=== PATIENT | female | born 1955 | race Caucasian/White ===

== ENCOUNTER 2017-02-20 11:20 | Emergency (ER) | payer OTHER ==
[~2017-02-20] VITALS: Ht 152.4 cm; Wt 68.0 kg
[2017-02-20] MEDS ORDERED: NEXI40CA PO (11:43)
[2017-02-20] MEDS ORDERED: SIMV80TA PO (11:43)
[2017-02-20] MEDS ORDERED: CELE100C PO (11:43)
[2017-02-20] MEDS ORDERED: ALBU17IN INH (11:43)
[2017-02-20] MEDS ORDERED: HYZA100T6 PO (11:43)
[2017-02-20] MEDS ORDERED: LEVO137T2 PO (11:43)
[2017-02-20] MEDS ORDERED: METF1000 PO (11:43)
[2017-02-20] MEDS ORDERED: VITA100037 PO (11:43)
[2017-02-20] MEDS ORDERED: DULO30CA PO (11:43)
--- NOTE | 2017-02-20 12:17 | REP ---
Clinical: Dyspnea. Cough . Comparison: None . Findings: The mediastinum and cardiac silhouette are stable and within normal limits for portable technique. The lung ang are clear without acute consolidation, effusion, or pneumothorax. Skeletal structures are intact. Impression: Normal portable chest x-ray Signed by Enrique Miles MD 02/20/2017 12:08 P
[2017-02-20 12:26] LABS: ANION GAP 9 MEQ/L (8-16); BLOOD UREA NITROGEN 9 MG/DL (7-18); CALCIUM LEVEL 9.2 MG/DL (8.8-10.2); CARBON DIOXIDE LEVEL 28 MEQ/L (21-32); CHLORIDE LEVEL 101 MEQ/L (98-107); CREATININE FOR GFR 0.97 MG/DL (0.55-1.02); GLOMERULAR FILTRATION RATE > 60.0 (>45); GLUCOSE, FASTING 179 MG/DL (80-110); POTASSIUM SERUM 3.8 MEQ/L (3.5-5.1); SODIUM LEVEL 138 MEQ/L (136-145)
--- NOTE | 2017-02-20 12:55 | REP ---
Left lower extremity deep vein duplex ultrasound: The deep veins demonstrate normal compression, normal Doppler color flow and normal Doppler waveforms with respiration and augmentation at multiple levels from the left popliteal vein to the common femoral vein. Impression: There is no evidence of deep vein thrombus. Signed by Yobani Alfaro MD 02/20/2017 12:47 P
[2017-02-20 12:59] LABS: BASO % 0.4 % (0.0-1.0); EOS # 0.1 K/mm3 (0.0-0.50); EOS % 1.4 % (0.0-3.0); LARGE UNSTAINED CELL # 0.2 K/mm3 (0.0-0.4); LARGE UNSTAINED CELL % 2.9 % (0.0-4.0); LYMPH # 1.9 K/mm3 (1.5-4.5); LYMPH % 26.7 % (24.0-44.0); MEAN CORPUSCULAR HEMOGLOBIN 24.6 pg (27.0-33.0); MEAN CORPUSCULAR HGB CONC 30.7 g/dl (32.0-36.5); MEAN CORPUSCULAR VOLUME 80.2 fl (80.0-96.0); MONO # 0.4 K/mm3 (0.0-0.8); MONO % 6.2 % (0.0-5.0); NEUTROPHILS # 4.4 K/mm3 (1.8-7.7); NEUTROPHILS % 62.4 % (36.0-66.0); PLATELET COUNT, AUTOMATED 298 k/mm3 (150-450); WHITE BLOOD COUNT 7.1 K/mm3 (4.0-10.0)
[2017-02-20] MEDS ORDERED: IBUP600T26 PO (13:56)
[2017-02-20] MEDS ORDERED: CYCL10TA PO (13:56)
[2017-02-20 14:17] VITALS: BP 135/84
--- NOTE | 2017-02-21 16:28 | ECGEPIP ---
Stationary ECG Study [facility] - ED Test Date: 2017-02-20 Pat Name: WADE SEARS Department: Room: - Gender: F Bull Driver: deirdre : 1955 Requested By: Layla Duran Order Number: [id number] Reading MD: Layla Duran Measurements Intervals [place] Rate: 78 P: 9 CA: 141 QRS: 2 QRSD: 86 T: 7 QT: 365 QTc: 416 Interpretive Statements SINUS RHYTHM NSTTW ABNORMALITY NO PRIOR FOR COMPARISON Electronically Signed On 02-21-2017 16:28:14 EDT by Layla Duran
== END 2017-02-20 14:18 | disposition home or self-care (01) ==
LOC: M ED 13:29
DX: M54.16 Radiculopathy, lumbar region (principal)

== ENCOUNTER → 2017-03-11 | Outpatient (CLI) | payer OTHER ==
[~2017-03-11] MED LIST: ALBU17IN INH; CELE100C PO; CYCL10TA PO; DULO30CA PO; HYZA100T6 PO; IBUP600T26 PO; LEVO137T2 PO; METF1000 PO; NEXI40CA PO; SIMV80TA PO; VITA100037 PO
--- NOTE | 2017-03-11 15:55 | REPMRS ---
Patient History The patient states she had a clinical breast exam in 2015. Patient is postmenopausal. No known family history of cancer. Took hormonal contraceptives for 15 years. Took unspecified hormones for 1 year. Digital Mammo Screening Bilat: March 11, 2017 - Exam #: [id number] Bilateral CC and MLO view(s) were taken. Technologist: Teresa Bee, Technologist Prior study comparison: June 07, 2014, bilateral bilat screen digital mammo, performed at [facility] ([facility]). November 10, 2012, bilateral bilat screen digital mammo, performed at [facility] ([facility]). January 18, 2011, bilateral screening mammogram, performed at [facility] ([facility] FINDINGS: There are scattered fibroglandular densities. There is a moderate amount of residual fibroglandular tissue which is fairly symmetric. There is no interval development of dominant mass, architectural distortion, or clustered microcalcification typical of malignancy. There has been no change in the appearance of the mammogram from the prior studies. ASSESSMENT: BI-RADS/ACR category 1 mammogram. Negative. Recommendation Routine screening mammogram of both breasts in 1 year (for women over age 40). This mammogram was interpreted with the aid of an FDA-approved computer-aided dectection system. Electronically Signed By: Fausto Rubio MD 03/11/17 [id number]
== END ==
LOC: M RAD 13:18
PROVIDERS: ATTEND Physician Assistant
DX: Z12.31 Encounter for screening mammogram for malignant neoplasm of breast (principal)

== ENCOUNTER 2018-11-26 08:08 | Day surgery (SDC) | payer OTHER ==
[~2018-11-26] VITALS: Ht 152.4 cm; Wt 67.1 kg
[~2018-11-26 08:08] MED LIST changes: +COLA100C5 PO; +CRES10TA32 PO; +GLYB5TA PO; +IBUP-1022 PO; -IBUP600T26 PO; +JANU100T14 PO; +JARD1TAB PO; +LEVO175T2 PO; +LIDOCAINE 2% INJ 100 MG/5 ML SDV (FOR ANES.) As Ordered ONE; +LOSA100T50 PO; -METF1000 PO; +METF10004 PO; +OLOP0.1D OU; +PANT40TA3 PO; +PROPOFOL 200 MG/20 ML VIAL As Ordered ONE; -SIMV80TA PO; +SIMV80TA13 PO; +VENTAER INH; -VITA100037 PO; +VITA100067 PO; +VITA50005 PO; +fentaNYL 100 MCG/2 ML INJECTION (J3010) As Ordered ONE
[2018-11-26] MEDS ORDERED: NS 1,000 ML IV ONE (08:30)
[2018-11-26] MEDS ORDERED: PROPOFOL 200 MG/20 ML VIAL As Ordered ONE (09:36)
--- NOTE | 2018-11-26 09:58 | ROOR ---
Patient Name: Edilia Martinez Procedure Date: 11/26/2018 8:56 AM Date of : 1955 Age: 63 Room: [facility] Gender: Female Note Status: Finalized Procedure: Upper GI endoscopy Indications: Dyspepsia, Heartburn Providers: Pedro Luis Solo MD Referring MD: JESSICA LOPEZ MD Requesting Provider: Medicines: Monitored Anesthesia Care Complications: No immediate complications. Procedure: Pre-Anesthesia Assessment: - Prior to the procedure, a History and Physical was performed, and patient medications and allergies were reviewed. The patient is competent. The risks and benefits of the procedure and the sedation options and risks were discussed with the patient. All questions were answered and informed consent was obtained. Patient identification and proposed procedure were verified by the physician, the nurse and the anesthesiologist in the procedure room. Mental Status Examination: alert and oriented. Airway Examination: normal oropharyngeal airway and neck mobility. Respiratory Examination: clear to auscultation. CV Examination: normal. Prophylactic Antibiotics: The patient does not require prophylactic antibiotics. Prior Anticoagulants: The patient has taken no previous anticoagulant or antiplatelet agents. ASA Grade Assessment: II - A patient with mild systemic disease. After reviewing the risks and benefits, the patient was deemed in satisfactory condition to undergo the procedure. The anesthesia plan was to use monitored anesthesia care (MAC). Immediately prior to administration of medications, the patient was re-assessed for adequacy to receive sedatives. The heart rate, respiratory rate, oxygen saturations, blood pressure, adequacy of pulmonary ventilation, and response to care were monitored throughout the procedure. The physical status of the patient was re-assessed after the procedure. The Endoscope was introduced through the mouth, and advanced to the second part of duodenum. The upper GI endoscopy was accomplished without difficulty. The patient tolerated the procedure well. Findings: The Z-line was regular and was found in the distal esophagus. No gross lesions were noted in the entire esophagus. Diffuse moderate inflammation characterized by congestion (edema), erythema and granularity was found in the gastric body and in the gastric antrum. Two biopsies were obtained with cold forceps for histology in the gastric antrum, as well as three biopsies in the gastric body. Verification of patient identification for the specimen was done by the physician and nurse using the patient's name, date and medical record number. The duodenal bulb and second portion of the duodenum were normal. Biopsies for histology were taken with a cold forceps for evaluation of celiac disease. Impression: - Z-line regular, in the distal esophagus. - No gross lesions in esophagus. - Gastritis. - Normal duodenal bulb and second portion of the duodenum. Biopsied. - Biopsies performed in the gastric antrum and in the gastric body. Recommendation: - Patient has a contact number available for emergencies. The signs and symptoms of potential delayed complications were discussed with the patient. Return to normal activities tomorrow. Written discharge instructions were provided to the patient. - Resume previous diet. - Continue present medications. - Await pathology results. - Based on the biopsy results you will receive a phone call from GI clinic in 2-3 weeks to review the pathology results AND/OR your results will be faxed to your Primary care physician. - Return to primary care physician. Pedro Luis Solo MD Pedro Luis Solo MD 11/26/2018 9:58:23 AM This report has been signed electronically. Number of Addenda: 0 Note Initiated On: 11/26/2018 8:56 AM Estimated Blood Loss: Estimated blood loss was minimal.
--- NOTE | 2018-11-26 10:03 | ROOR ---
Patient Name: Edilia Martinez Procedure Date: 11/26/2018 8:57 AM Date of : 1955 Age: 63 Room: [facility] Gender: Female Note Status: Finalized Procedure: Colonoscopy Indications: Screening for colorectal malignant neoplasm Providers: Pedro Luis Solo MD Referring MD: JESSICA LOPEZ MD Requesting Provider: Medicines: Monitored Anesthesia Care Complications: No immediate complications. Procedure: Pre-Anesthesia Assessment: - Prior to the procedure, a History and Physical was performed, and patient medications and allergies were reviewed. The patient is competent. The risks and benefits of the procedure and the sedation options and risks were discussed with the patient. All questions were answered and informed consent was obtained. Patient identification and proposed procedure were verified by the physician, the nurse and the anesthesiologist in the procedure room. Mental Status Examination: alert and oriented. Airway Examination: normal oropharyngeal airway and neck mobility. Respiratory Examination: clear to auscultation. CV Examination: normal. Prophylactic Antibiotics: The patient does not require prophylactic antibiotics. Prior Anticoagulants: The patient has taken no previous anticoagulant or antiplatelet agents. ASA Grade Assessment: II - A patient with mild systemic disease. After reviewing the risks and benefits, the patient was deemed in satisfactory condition to undergo the procedure. The anesthesia plan was to use monitored anesthesia care (MAC). Immediately prior to administration of medications, the patient was re-assessed for adequacy to receive sedatives. The heart rate, respiratory rate, oxygen saturations, blood pressure, adequacy of pulmonary ventilation, and response to care were monitored throughout the procedure. The physical status of the patient was re-assessed after the procedure. The Colonoscope was introduced through the anus and advanced to the terminal ileum, with identification of the appendiceal orifice and IC valve. The colonoscopy was performed without difficulty. The patient tolerated the procedure well. The quality of the bowel preparation was good. The terminal ileum, ileocecal valve, appendiceal orifice, and rectum were photographed. Scope insertion time was 4 minutes. Scope withdrawal time was 8 minutes. The total duration of the procedure was 12 minutes. Findings: The perianal and digital rectal examinations were normal. The terminal ileum appeared normal. A 10 mm polyp was found in the sigmoid colon. The polyp was sessile. The polyp was removed with a cold snare. Resection and retrieval were complete. Verification of patient identification for the specimen was done by the physician, nurse and simulation technician using the patient's name, date and medical record number. Estimated blood loss was minimal. A 8 mm polyp was found in the rectum. The polyp was sessile. Biopsies were taken with a cold forceps for histology. Multiple small and large-mouthed diverticula were found from sigmoid to ascending colon. There was no evidence of diverticular bleeding. Non-bleeding external and internal hemorrhoids were found during retroflexion. The hemorrhoids were large. Impression: - The examined portion of the ileum was normal. - One 10 mm polyp in the sigmoid colon, removed with a cold snare. Resected and retrieved. - One 8 mm polyp in the rectum. Biopsied. - Severe diverticulosis from sigmoid to ascending colon. There was no evidence of diverticular bleeding. - Non-bleeding external and internal hemorrhoids. Recommendation: - Patient has a contact number available for emergencies. The signs and symptoms of potential delayed complications were discussed with the patient. Return to normal activities tomorrow. Written discharge instructions were provided to the patient. - High fiber diet. - Continue present medications. - Await pathology results. - Repeat colonoscopy in 3 - 5 years for surveillance based on pathology results. If rectal biopsy shows changes, might need sooner flexible sigmoidoscopy in 6 months. - Based on the biopsy results you will receive a phone call from GI clinic in 2-3 weeks to review the pathology results AND/OR your results will be faxed to your Primary care physician. - Return to primary care physician. Pedro Luis Solo MD Pedro Luis Solo MD 11/26/2018 10:02:40 AM This report has been signed electronically. Number of Addenda: 0 Note Initiated On: 11/26/2018 8:57 AM Estimated Blood Loss: Estimated blood loss was minimal.
[2018-11-26 10:15] VITALS: BP 122/69
== END 2018-11-26 10:55 | disposition home or self-care (01) ==
LOC: M OPP 08:08
PROVIDERS: ATTEND Internal Medicine Gastroenterology
DX: K64.8 Other hemorrhoids (principal); D12.5 Benign neoplasm of sigmoid colon; K62.1 Rectal polyp; K57.30 Diverticulosis of large intestine without perforation or abscess without bleeding; K62.5 Hemorrhage of anus and rectum; K29.70 Gastritis, unspecified, without bleeding; R10.13 Epigastric pain
CPT/HCPCS: 43239; 45380; 45385; 88305; J3010

== ENCOUNTER → 2019-02-04 | Outpatient (CLI) | payer OTHER ==
[~2019-02-04] MED LIST changes: -LIDOCAINE 2% INJ 100 MG/5 ML SDV (FOR ANES.) As Ordered ONE; -PROPOFOL 200 MG/20 ML VIAL As Ordered ONE; -fentaNYL 100 MCG/2 ML INJECTION (J3010) As Ordered ONE
--- NOTE | 2019-02-04 17:44 | REPMRS ---
Patient History The patient states she had a clinical breast exam in 07/11.No known family history of cancer. Took hormonal contraceptives for 15 years. Took unspecified hormones for 1 year. 2D ONLY Digital Mammo Screening Bilat: February 04, 2019 - Exam #: [id number] Bilateral CC and MLO view(s) were taken. Technologist: Teresa Bee, Technologist Prior study comparison: March 11, 2017, bilateral digital mammo screening bilat performed at [facility]. June 07, 2014, bilateral bilat screen digital mammo, performed at [facility] ([facility]). FINDINGS: There are scattered fibroglandular densities. There has been no change in the appearance of the mammogram from the prior studies. There is a moderate amount of residual fibroglandular tissue which is fairly symmetric. There is no interval development of dominant mass, architectural distortion, or clustered microcalcification suggestive of malignancy. Scattered lymph nodes are seen in the axillae. There are scattered, small, benign calcifications of doubtful clinical significance. 3-D tomosynthesis shows no additional findings. No significant changes when compared with prior studies. Assessment: BI-RADS/ACR category 2 mammogram. Benign Findings. Recommendation Routine screening mammogram in 1 year (for women over age 40). This mammogram was interpreted with the aid of an FDA-approved computer-aided dectection system. A. Negative x-ray reports should not delay biopsy if a dominant or clinically suspicious mass is present. B. Four to eight percent of cancers are not identified by mammography. C. Adenosis and dense breast may obscure an underlying neoplasm. Electronically Signed By: Seymour Perdomo MD 02/04/19 [id number]
== END ==
LOC: M RAD 16:54
PROVIDERS: ATTEND Internal Medicine
DX: Z12.31 Encounter for screening mammogram for malignant neoplasm of breast (principal)

== ENCOUNTER 2019-02-13 17:52 | Emergency (ER) | payer OTHER ==
[~2019-02-13] VITALS: Ht 152.4 cm; Wt 68.6 kg
[~2019-02-13 17:52] MED LIST changes: -DULO30CA PO; +DULO30CA9 PO
[2019-02-13] MEDS ORDERED: HYDR25TAB (18:01)
[2019-02-13] MEDS ORDERED: ONDANSETRON 4MG/2ML VIAL (J2405) IV ONE (18:15)
[2019-02-13] MEDS ORDERED: KETOROLAC 30 MG/ML VIAL (J1885) IV ONE (18:15)
[2019-02-13] MEDS: GASTROGRAFIN SOLUTION 30ML PO SCH ×2 (19:01→19:30)
[2019-02-13 19:56] LABS: BASO # 0.1 10^3/uL (0.0-0.2); BASO % 0.8 % (0.0-1.0); EOS # 0.1 10^3/uL (0.0-0.50); EOS % 1.3 % (0.0-3.0); HEMATOCRIT 44.1 % (36.0-47.0); HEMOGLOBIN 13.3 g/dl (12.0-15.5); LYMPH # 2.5 10^3/uL (1.5-4.5); LYMPH % 39.2 % (24.0-44.0); MEAN CORPUSCULAR HEMOGLOBIN 24.3 pg (27.0-33.0); MEAN CORPUSCULAR HGB CONC 30.2 g/dl (32.0-36.5); MEAN CORPUSCULAR VOLUME 80.5 fl (80.0-96.0); MONO # 0.7 10^3/uL (0.0-0.8); MONO % 11.2 % (0.0-5.0); NEUTROPHILS % 47.2 % (36.0-66.0); PLATELET COUNT, AUTOMATED 366 10^3/uL (150-450); RED BLOOD COUNT 5.48 10^6/uL (4.00-5.40); WHITE BLOOD COUNT 6.3 10^3/uL (4.0-10.0)
[2019-02-13 20:00] LABS: ALBUMIN 3.5 GM/DL (3.2-5.2); ALT/SGPT 19 U/L (12-78); AMYLASE 56 U/L (25-115); BILIRUBIN,DIRECT < 0.1 MG/DL (0.0-0.2); BILIRUBIN,TOTAL 0.2 MG/DL (0.2-1.0); BLOOD UREA NITROGEN 11 MG/DL (7-18); CALCIUM LEVEL 9.1 MG/DL (8.8-10.2); CARBON DIOXIDE LEVEL 29 MEQ/L (21-32); CHLORIDE LEVEL 104 MEQ/L (98-107); CREATININE FOR GFR 0.84 MG/DL (0.55-1.30); GLOMERULAR FILTRATION RATE > 60.0 (>45); GLUCOSE, FASTING 141 MG/DL (70-100); LIPASE 276 U/L (73-393); POTASSIUM SERUM 3.5 MEQ/L (3.5-5.1); SODIUM LEVEL 140 MEQ/L (136-145); TOTAL PROTEIN 6.9 GM/DL (6.4-8.2)
[2019-02-13] MEDS ORDERED: ISOVUE-370 76% 125ML VIAL (Q9967 PER ML) As Ordered ONE (20:14)
--- NOTE | 2019-02-13 22:23 | REPVR ---
EXAM: CT Abdomen and Pelvis With Contrast EXAM DATE/TIME: 02/13/2019 8:58 PM CLINICAL HISTORY: 63 years old, female; Pain; Abdominal pain; Generalized; Additional info: R/O appendicitis, bowel obstruction TECHNIQUE: Imaging protocol: Axial computed tomography images of the abdomen and pelvis with intravenous contrast. Coronal and sagittal reformatted images were created and reviewed. Radiation optimization: All CT scans at this facility use at least one of these dose optimization techniques: automated exposure control; mA and/or kV adjustment per patient size (includes targeted exams where dose is matched to clinical indication); or iterative reconstruction. Contrast material: ISOVUE 370 Contrast volume: 100 ml Contrast route: IV COMPARISON: No relevant prior studies available. FINDINGS: Lower thorax: Clear lung bases. Normal size heart. ABDOMEN: Liver: Normal appearing liver. Gallbladder and bile ducts: The patient is status post cholecystectomy. There is some ectasia of the common bile duct consistent with a post cholecystectomy patient. Pancreas: Normal appearing pancreas. Spleen: Normal appearing spleen. Adrenals: Normal adrenal glands. Kidneys and ureters: There is a 3 mm calcified stone upper pole right kidney. There is no evidence of obstruction of the right ureter. There is no evidence of obstruction of the left ureter. Stomach and bowel: There is thickening of bowel wall with thickening of a 20 CM length of sigmoid colon. There are numerous large diverticula with surrounding inflammation and all consistent with diverticulitis. There is a small amount of fluid along the left pelvic sidewall all consistent with changes of diverticulitis. There is opacification of the small bowel with no evidence of obstruction. Appendix: The cecum is in the right pelvis. The appendix appears normal in size. PELVIS: Bladder: Normal urinary bladder. Reproductive: Patient is status post hysterectomy. ABDOMEN and PELVIS: Intraperitoneal space: No evidence of pneumoperitoneum. There is no evidence of free fluid in the abdomen. Bones/joints: No acute fracture. No dislocation. Soft tissues: Unremarkable. Vasculature: There is opacification of the aorta which appears normal in size. There is opacification of the SMA and SMV. Lymph nodes: There is no evidence of significant lymphadenopathy. IMPRESSION: Thickening of the bowel wall of a 20 CM length of sigmoid colon with numerous large diverticula and inflammation. Small amount fluid along left pelvic sidewall and all consistent with changes of diverticulitis. Followup studies would be helpful to see that the bowel wall thickening resolves. Electronically signed by: Tobin Gaspar On 02/13/2019 22:22:59 PM
[2019-02-13 23:42] VITALS: BP 134/81
[2019-02-13] MEDS ORDERED: BACT800T5 PO (23:53)
[2019-02-13] MEDS ORDERED: FLAG500T PO (23:53)
[2019-02-14] MEDS ORDERED: BACTRIM 160MG/800MG DS TAB PO ONE
[2019-02-14] MEDS ORDERED: metroNIDAZOLE (FLAGYL) 500 MG TAB PO ONE
== END 2019-02-14 00:05 | disposition home or self-care (01) ==
LOC: M ED 17:52
DX: K57.32 Diverticulitis of large intestine without perforation or abscess without bleeding (principal); E11.9 Type 2 diabetes mellitus without complications; I10 Essential (primary) hypertension; J45.909 Unspecified asthma, uncomplicated; E78.5 Hyperlipidemia, unspecified; E03.9 Hypothyroidism, unspecified; Z79.899 Other long term (current) drug therapy; Z79.890 Hormone replacement therapy
CPT/HCPCS: 74177; 80048; 80076; 81001; 82150; 83690; 85025; 96374; 96375; 99284; J1885; J2405; Q9963; Q9967

== ENCOUNTER → 2019-09-25 | Outpatient (REF) | payer OTHER ==
[~2019-09-25] MED LIST changes: +BACT800T5 PO; +CRES10TA PO; -CRES10TA32 PO; +FLAG500T PO; +HYDR25TAB
== END ==
LOC: M WUC 17:02
PROVIDERS: ATTEND Physician Assistant
DX: R30.0 Dysuria (principal)

== ENCOUNTER → 2019-12-07 | Outpatient (REF) | payer OTHER | LOC: M WUC 09:56 | PROVIDERS: ATTEND Physician Assistant | DX: R30.0 Dysuria (principal) ==

== ENCOUNTER → 2020-04-21 | Outpatient (CLI) | payer OTHER ==
[~2020-04-21] MED LIST changes: +CYCL-707 PO; -CYCL10TA PO
--- NOTE | 2020-04-21 08:54 | REPMRS ---
Patient History The patient states she had a clinical breast exam in March 2020.No known family history of cancer. Took hormonal contraceptives for 15 years. Took unspecified hormones for 1 year. Digital Woman Screen Mammo: April 21, 2020 - Exam #: [id number] Bilateral CC and MLO view(s) were taken. Technologist: Teresa Bee, Technologist Prior study comparison: February 04, 2019, bilateral digital mammo screening bilat, performed at [facility]. March 11, 2017, bilateral digital mammo screening bilat, performed at [facility]. June 07, 2014, bilateral bilat screen digital mammo, performed at [facility] ([facility]). FINDINGS: There are scattered fibroglandular densities. The Volpara volumetric breast density category is:B. There has been no change in the appearance of the mammogram from the prior studies. There is a mild amount of scattered fibroglandular density which is fairly symmetric. There is no interval development of dominant mass, architectural distortion, or grouped microcalcification suggestive of malignancy. 3-D tomosynthesis shows no additional findings. Assessment: BI-RADS/ACR category 1 mammogram. Negative Mammogram. Recommendation Routine screening mammogram of both breasts in 1 year (for women over age 40). This patient's Lifetime Breast Cancer Risk is estimated at 6.4 %. This mammogram was interpreted with the aid of an FDA-approved computer-aided dectection system. Electronically Signed By: Fausto Rubio MD 04/21/20 0854
--- NOTE | 2020-04-22 12:37 | REP ---
RENAL ULTRASOUND: Real-time sonographic evaluation of kidneys performed. The kidneys are normal in size and echotexture, right kidney measuring 10.0 x 3.9 x 3.9 cm and left kidney 10.3 x 3.8 x 4.1 cm. Resistive index right kidney 0.63 and left kidney 0.66 with duplex Doppler evaluation. There is no hydronephrosis. Two calcifications are seen in the right upper pole 6-7 mm in diameter. There is focal cortical scarring of the mid right renal cortex. There is an extrarenal pelvis of the right kidney. Urinary bladder is not well distended and not well evaluated. Ureteral jets could not be seen in the urinary bladder with Doppler color evaluation. IMPRESSION: No hydronephrosis bilaterally. Focal cortical scarring mid right kidney. Two calcifications are seen in the upper pole of the right kidney 6 mm in diameter.
== END ==
LOC: M WHC 08:15
PROVIDERS: ATTEND Internal Medicine
DX: Z12.31 Encounter for screening mammogram for malignant neoplasm of breast (principal); N39.0 Urinary tract infection, site not specified; N20.0 Calculus of kidney

== ENCOUNTER → 2020-09-05 | Outpatient (CLI) | payer OTHER ==
[~2020-09-05] MED LIST changes: +PANT40TA29 PO; -PANT40TA3 PO
--- NOTE | 2020-09-08 08:37 | REP ---
COMPLETE ABDOMINAL ULTRASOUND: 09/05/20. CLINICAL: Generalized abdominal pain. TECHNIQUE: Real time bauer scale ultrasound examination using curved array transducer. FINDINGS: The liver demonstrates mildly coarsened echotexture with a 6mm hyperechoic solid lesion in the right lobe likely representing small hemangioma. Spleen and pancreas are normal in appearance, size and echotexture. The gallbladder is not visualized. No biliary ductal dilatation is appreciated and the common bile duct measures 7mm diameter. The left kidney is normal in appearance without hydronephrosis and measures 10.6 x 3.7 x 5.1cm. The right kidney is normal in reniform shape with suggestions for partial duplication and no hydronephrosis measuring 9.3 x 4.7 x 4.1cm. Visualized abdominal aorta appears relatively normal and measures 2.0cm maximal diameter. No ascites in the visualized abdomen. IMPRESSION: 1. Liver demonstrates coarsened echotexture suggesting hepatocellular disease and small 6mm lesion which may represent hemangioma. 2. 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 [facility]
--- NOTE | 2020-09-08 08:38 | REP ---
PELVIC ULTRASOUND: 09/05/20. CLINICAL: Abdominal and pelvic pain. TECHNIQUE: Transabdominal pelvic ultrasound followed by transvaginal examination for better evaluation of the adnexa. FINDINGS: The bladder is collapsed. Evidence for prior hysterectomy. Large amount of bowel obscures the pelvic structures and the bilateral ovaries are not visualized. No obvious free fluid or focal mass lesion appreciated. IMPRESSION: Limited pelvic ultrasound. Evidence for prior hysterectomy. Ovaries not visualized. [facility]
== END ==
LOC: M RAD 09:10
PROVIDERS: ATTEND Internal Medicine
DX: R93.421 Abnormal radiologic findings on diagnostic imaging of right kidney (principal); R10.9 Unspecified abdominal pain; Z90.79 Acquired absence of other genital organ(s)

== ENCOUNTER → 2020-10-14 | Outpatient (REF) | payer OTHER | LOC: M LAB REF 14:10 | PROVIDERS: ATTEND Internal Medicine Gastroenterology | DX: R19.7 Diarrhea, unspecified (principal) ==

== ENCOUNTER 2020-11-03 08:10 | Day surgery (SDC) | payer OTHER ==
[~2020-11-03] VITALS: Ht 152.4 cm; Wt 66.7 kg
[~2020-11-03 08:10] MED LIST changes: +BYDU2INJ7; +ESTR0.059; +IBUP-1720; +LEVO2TA; +LOPE1CAP5; +LOSA100T5; +NS 1,000 ML IV ONE
[2020-11-03] MEDS ORDERED: LIDOCAINE 2% 100MG/5ML SDV (FOR ANES.) As Ordered ONE (08:22)
[2020-11-03] MEDS ORDERED: propofoL 200 MG/20 ML VIAL As Ordered ONE ×2 (08:22→09:05)
--- NOTE | 2020-11-03 09:24 | ROOR ---
Patient Name: Edilia Martinez Procedure Date: 11/03/2020 8:51 AM Date of : 1955 Age: 65 Room: [facility] Gender: Female Note Status: Finalized Procedure: Total Colonoscopy to Cecum + Bx. To r/o Microscopic Colitis Indications: Clinically significant diarrhea of unexplained origin, Change in bowel habits Providers: Jaya Luz MD Referring MD: Siobhan VASQUEZ MD Requesting Provider: Medicines: Monitored Anesthesia Care Complications: No immediate complications. Procedure: Pre-Anesthesia Assessment: - The heart rate, respiratory rate, oxygen saturations, blood pressure, adequacy of pulmonary ventilation, and response to care were monitored throughout the procedure. The Colonoscope was introduced through the anus and advanced to the cecum, identified by appendiceal orifice and ileocecal valve. The colonoscopy was performed without difficulty. The patient tolerated the procedure well. The quality of the bowel preparation was excellent. Findings: The perianal and digital rectal examinations were normal. Non-bleeding internal hemorrhoids were found during retroflexion. The hemorrhoids were small and Grade I (internal hemorrhoids that do not prolapse). Multiple small and large-mouthed diverticula were found in the recto-sigmoid colon, sigmoid colon and descending colon. Biopsies for histology were taken with a cold forceps from the ascending colon, transverse colon, descending colon and rectosigmoid colon for evaluation of microscopic colitis. The exam was otherwise without abnormality. Impression: - Non-bleeding internal hemorrhoids. - Diverticulosis in the recto-sigmoid colon, in the sigmoid colon and in the descending colon. - The examination was otherwise normal. - Biopsies were taken with a cold forceps from the ascending colon, transverse colon, descending colon and rectosigmoid colon for evaluation of microscopic colitis. - The exam was otherwise normal to the cecum. Recommendation: - Patient has a contact number available for emergencies. The signs and symptoms of potential delayed complications were discussed with the patient. Return to normal activities tomorrow. Written discharge instructions were provided to the patient. - High fiber diet. - Discharge patient to home. - Continue present medications. - Await pathology results. - Telephone GI clinic for pathology results in 1 week. - Repeat colonoscopy in 10 years for surveillance based on pathology results. - Return to referring physician. - The findings and recommendations were discussed with the patient. Procedure Code(s): --- Professional --- 60374, Colonoscopy, flexible; with biopsy, single or multiple Diagnosis Code(s): --- Professional --- K64.0, First degree hemorrhoids R19.7, Diarrhea, unspecified R19.4, Change in bowel habit K57.30, Diverticulosis of large intestine without perforation or abscess without bleeding CPT copyright 2019 [employer]. All rights reserved. The codes documented in this report are preliminary and upon oracle iam consultant review may be revised to meet current compliance requirements. Jaya Luz MD Jaya Luz MD 11/03/2020 9:23:45 AM Electronically signed by Jaya Luz MD Number of Addenda: 0 Note Initiated On: 11/03/2020 8:51 AM Estimated Blood Loss: Estimated blood loss: none.
[2020-11-03 09:44] VITALS: BP 133/87
== END 2020-11-03 09:45 | disposition home or self-care (01) ==
LOC: M OPP 08:10
PROVIDERS: ATTEND Internal Medicine Gastroenterology
DX: R19.7 Diarrhea, unspecified (principal); R19.4 Change in bowel habit; D12.6 Benign neoplasm of colon, unspecified; K64.0 First degree hemorrhoids; K57.30 Diverticulosis of large intestine without perforation or abscess without bleeding; I10 Essential (primary) hypertension; E11.9 Type 2 diabetes mellitus without complications; E03.9 Hypothyroidism, unspecified; R12 Heartburn; M19.90 Unspecified osteoarthritis, unspecified site; F32.9 Major depressive disorder, single episode, unspecified; J45.909 Unspecified asthma, uncomplicated; G47.33 Obstructive sleep apnea (adult) (pediatric); Z87.442 Personal history of urinary calculi; Z79.84 Long term (current) use of oral hypoglycemic drugs; Z79.899 Other long term (current) drug therapy

== ENCOUNTER → 2021-07-27 | Outpatient (CLI) | payer MEDICARE, OTHER ==
[~2021-07-27] MED LIST changes: -GLYB5TA PO; +GLYB5TAB6 PO; +HYDR-3490; -HYDR25TAB; -NS 1,000 ML IV ONE
--- NOTE | 2021-07-27 16:37 | REP ---
INDICATION: RT HAND FX FOLLOW-UP. COMPARISON: No comparison study available. TECHNIQUE: Three views of the right hand are provided. FINDINGS: X-rays through overlying splint material. Three views of the right hand demonstrate a transversely oriented fracture through the 5th metacarpal with some very slight apex dorsal angulation. No displacement. There is mild diffuse osteopenia. No other fracture seen. IMPRESSION: Proximal 5th metacarpal fracture as above. X-rays taken through overlying splint material. <Electronically signed by Fausto Rubio > 07/27/21 [id number]
== END ==
LOC: M SOG 14:27
PROVIDERS: ATTEND Orthopaedic Surgery
DX: S62.306A Unspecified fracture of fifth metacarpal bone, right hand, initial encounter for closed fracture (principal); X58.XXXA Exposure to other specified factors, initial encounter; Y92.9 Unspecified place or not applicable; Y93.9 Activity, unspecified; Y99.9 Unspecified external cause status

== ENCOUNTER → 2021-08-10 | Outpatient (CLI) | payer MEDICARE, OTHER ==
--- NOTE | 2021-08-10 17:32 | REP ---
INDICATION: RT HAND PAIN. COMPARISON: 07/27/[address] TECHNIQUE: Three limited views with cast removed FINDINGS: Previously described fracture involving the base of the 5th metacarpal is again identified. The margins are slightly indistinct suggesting early callus formation. IMPRESSION: Findings suggest rudimentary healing. Follow-up is recommended. Consider CT if clinically relevant. <Electronically signed by Jorge Crowell > 08/10/21 [id number]
== END ==
LOC: M SOG 14:47
PROVIDERS: ATTEND Orthopaedic Surgery
DX: M79.641 Pain in right hand (principal); S62.311D Displaced fracture of base of second metacarpal bone, left hand, subsequent encounter for fracture with routine healing; X58.XXXD Exposure to other specified factors, subsequent encounter; Y92.9 Unspecified place or not applicable; Y99.9 Unspecified external cause status; Y93.9 Activity, unspecified

== ENCOUNTER → 2021-09-10 | Outpatient (CLI) | payer MEDICARE, OTHER ==
--- NOTE | 2021-09-10 19:46 | REP ---
INDICATION: RT HAND FX. COMPARISON: 08/10/2021 TECHNIQUE: AP, lateral, oblique view right hand FINDINGS: Callus formation and periosteal reaction noted at the transverse fracture through the base of the 5th metacarpal bone. Remainder of the examination appears normal. IMPRESSION: Healing transverse fracture at the base of the 5th metacarpal bone. <Electronically signed by Enrique Miles > 09/10/211941
== END ==
LOC: M SOG 11:56
PROVIDERS: ATTEND Orthopaedic Surgery
DX: S62.346D Nondisplaced fracture of base of fifth metacarpal bone, right hand, subsequent encounter for fracture with routine healing (principal); X58.XXXD Exposure to other specified factors, subsequent encounter; Y92.9 Unspecified place or not applicable; Y93.9 Activity, unspecified; Y99.9 Unspecified external cause status

== ENCOUNTER → 2021-10-07 | Outpatient (CLI) | payer MEDICARE, OTHER ==
--- NOTE | 2021-10-08 18:58 | SLEEPCENT ---
DATE: 10/07/2021 ORDERED BY: JASMINE Gerber Nocturnal polysomnography was performed for evaluation of sleep physiology in this patient with a history of excessive somnolence, morning headaches, and a prior history of sleep apnea syndrome. Eight hours and 13 minutes of data were reviewed. There were 226 minutes of sleep identified. Sleep latency was prolonged at 76.5 minutes. REM latency was prolonged at 199.5 minutes. Sleep architecture showed poor progression and periods of wake. There were two REM cycles noted. Overall sleep efficiency was 46.5%. The electrocardiogram showed a sinus rhythm with an average heart rate of 68 beats per minute. EEG showed normal waveforms for wake and sleep. There were 118 respiratory events identified of 10 seconds in duration or greater for an apnea-hypopnea index of 31.3. The events were obstructive, not exclusive to sleep stage, more frequent but not exclusive to the supine posture. Arousals from respiratory events occurred 7.4 times per hour, and oxygen desaturations were seen into the 80s. There was some minor limb activity noted. Snoring was seen. Remaining measures of sleep physiology were normal. IMPRESSION: Obstructive sleep apnea syndrome (G47.33). Apnea-hypopnea index 31.3. RECOMMENDATION: The patient should be encouraged to return to [facility]. In the interim, alcohol and sedative avoidance should be practiced and caution exercised during the operation of motor vehicles.
== END ==
LOC: M SLEEP 20:00
PROVIDERS: ATTEND Physician Assistant
DX: G47.33 Obstructive sleep apnea (adult) (pediatric) (principal)

== ENCOUNTER → 2021-11-20 | Outpatient (CLI) | payer MEDICARE, OTHER ==
[~2021-11-20] MED LIST changes: +K-TA10TA PO; +LOSA100T45 PO; -LOSA100T50 PO
[2021-11-20 19:11] LABS: BLOOD UREA NITROGEN 9 MG/DL (7-18); CREATININE FOR GFR 0.81 MG/DL (0.55-1.30); GLOMERULAR FILTRATION RATE > 60.0 (>45)
== END ==
LOC: M LAB 18:22
PROVIDERS: ATTEND Otolaryngology
DX: H90.42 Sensorineural hearing loss, unilateral, left ear, with unrestricted hearing on the contralateral side (principal)

== ENCOUNTER → 2021-11-26 | Outpatient (CLI) | payer MEDICARE, OTHER ==
[~2021-11-26] MED LIST changes: -K-TA10TA PO; -LOSA100T45 PO; +LOSA100T50 PO; +PROHANCE 279.3MG/ML 15ML VIAL ONE
--- NOTE | 2021-11-26 09:49 | REPVR ---
PROCEDURE INFORMATION: Exam: MR Head Without and With Contrast; Internal Auditory Canals Exam date and time: 11/26/2021 9:30 AM Age: 66 years old Clinical indication: Other: Left ear hearing loss, fullness in left ear x 6 mo. ; Additional info: Snsrnrl hear loss, uni, left ear, w unrestr hear c TECHNIQUE: Imaging protocol: MR of the head without and with intravenous contrast. Exam focused on the internal auditory canals. Contrast material: PROHANCE; Contrast volume: 12 ml; Contrast route: INTRAVENOUS (IV); COMPARISON: No relevant prior studies available. FINDINGS: Brain: There is no extra-axial collection or intra-axial mass. Mild diffuse volume loss is within the range of normal for patient age. There are scattered foci of T2/FLAIR white matter hyperintensity, nonspecific but typically small-vessel ischemia in this age group. There is no diffusion restriction. Ventricles: No ventriculomegaly. Mastoid air cells: There is fluid opacification of right mastoid air cells and right middle ear cavity. Internal auditory canals: The IAC's appear symmetric, without abnormal enhancement or mass. Bones/joints: Unremarkable. IMPRESSION: 1. Fluid opacification of right mastoid air cells and right middle ear cavity, presumably effusion. 2. Otherwise, no structural abnormality identified. Electronically signed by: Jeane Lopes On 11/26/2021 09:49:10 AM
== END ==
LOC: M PLAIMG 08:34
PROVIDERS: ATTEND Otolaryngology
DX: H90.42 Sensorineural hearing loss, unilateral, left ear, with unrestricted hearing on the contralateral side (principal); H74.8X1 Other specified disorders of right middle ear and mastoid
CPT/HCPCS: 70553; A9576

== ENCOUNTER → 2022-01-05 | Outpatient (CLI) | payer MEDICARE, OTHER ==
[~2022-01-05] MED LIST changes: +K-TA10TA PO; +LOSA100T45 PO; -LOSA100T50 PO; -PROHANCE 279.3MG/ML 15ML VIAL ONE
== END ==
LOC: M LABSMTC 13:19
PROVIDERS: ATTEND Anesthesiology
DX: Z01.812 Encounter for preprocedural laboratory examination (principal); Z20.822 Contact with and (suspected) exposure to COVID-19

== ENCOUNTER 2022-01-10 08:15 | Day surgery (SDC) | payer MEDICARE, OTHER ==
[~2022-01-10] VITALS: Ht 152.4 cm; Wt 65.3 kg
[~2022-01-10 08:15] MED LIST changes: +DESFLURANE 240 ML INHALANT As Ordered ONE; +LIDOCAINE 1% MDV 20ML VIAL SQ PRN; +LIDOCAINE 2% 100MG/5ML SDV (FOR ANES.) As Ordered ONE; +LR 1,000 ML IV ONE; +MIDAZOLAM INJ 2MG/2ML VIAL (J2250 PER 1MG) As Ordered ONE; +ONDANSETRON 4MG/2ML VIAL As Ordered ONE; +dexameTHASONE 4 MG/ML 1ML VIAL (J1100 PER 1MG) As Ordered ONE; +fentaNYL 100 MCG/2 ML INJECTION As Ordered ONE; +propofoL 200 MG/20 ML VIAL As Ordered ONE
[2022-01-10] MEDS ORDERED: CIPRODEX OTIC SUSP 7.5ML As Ordered ONE (09:07)
[2022-01-10] MEDS ORDERED: PHENYLEPHRINE 0.5% NASAL SPRAY 15 ML As Ordered ONE (09:08)
[2022-01-10] MEDS ORDERED: KETOROLAC 60MG 2ML VIAL As Ordered ONE (09:41)
[2022-01-10 10:45] VITALS: BP 132/68
== END 2022-01-10 11:24 | disposition home or self-care (01) ==
LOC: M SDC 08:15
PROVIDERS: ATTEND Otolaryngology
DX: H69.81 Other specified disorders of Eustachian tube, right ear (principal); I10 Essential (primary) hypertension; E11.9 Type 2 diabetes mellitus without complications; G47.33 Obstructive sleep apnea (adult) (pediatric); J45.909 Unspecified asthma, uncomplicated; K21.9 Gastro-esophageal reflux disease without esophagitis; F32.9 Major depressive disorder, single episode, unspecified; L40.9 Psoriasis, unspecified; Z79.899 Other long term (current) drug therapy
CPT/HCPCS: 69436; J1100; J1885; J2250; J2405; J3010

== ENCOUNTER → 2022-02-20 | Outpatient (CLI) | payer MEDICARE, OTHER ==
[~2022-02-20] MED LIST changes: -DESFLURANE 240 ML INHALANT As Ordered ONE; -LIDOCAINE 1% MDV 20ML VIAL SQ PRN; -LIDOCAINE 2% 100MG/5ML SDV (FOR ANES.) As Ordered ONE; -LR 1,000 ML IV ONE; -MIDAZOLAM INJ 2MG/2ML VIAL (J2250 PER 1MG) As Ordered ONE; -OLOP0.1D OU; +OLOP5DRO16 OU; -ONDANSETRON 4MG/2ML VIAL As Ordered ONE; -dexameTHASONE 4 MG/ML 1ML VIAL (J1100 PER 1MG) As Ordered ONE; -fentaNYL 100 MCG/2 ML INJECTION As Ordered ONE; -propofoL 200 MG/20 ML VIAL As Ordered ONE
[2022-02-20 15:39] LABS: BASO % 0.7 % (0.0-1.0); EOS # 0.1 10^3/uL (0.0-0.5); EOS % 1.3 % (0.0-3.0); HEMATOCRIT 45.1 % (36.0-47.0); HEMOGLOBIN 14.3 g/dl (12.0-15.5); LYMPH # 1.8 10^3/uL (1.5-5.0); MEAN CORPUSCULAR HEMOGLOBIN 26.6 pg (27.0-33.0); MEAN CORPUSCULAR HGB CONC 31.7 g/dl (32.0-36.5); MEAN CORPUSCULAR VOLUME 83.8 fl (80.0-96.0); MONO # 0.7 10^3/uL (0.0-0.8); MONO % 13.3 % (2.0-8.0); NEUTROPHILS # 2.8 10^3/uL (1.5-8.5); NEUTROPHILS % 51.3 % (36.0-66.0); PLATELET COUNT, AUTOMATED 252 10^3/uL (150-450); RED BLOOD COUNT 5.38 10^6/uL (4.00-5.40); WHITE BLOOD COUNT 5.5 10^3/uL (4.0-10.0)
[2022-02-20 16:08] LABS: ALBUMIN 3.3 GM/DL (3.2-5.2); ALT/SGPT 22 U/L (12-78); BILIRUBIN,DIRECT < 0.1 MG/DL (0.0-0.2); BILIRUBIN,TOTAL 0.5 MG/DL (0.2-1.0); BLOOD UREA NITROGEN 11 MG/DL (7-18); CALCIUM LEVEL 8.7 MG/DL (8.8-10.2); CARBON DIOXIDE LEVEL 32 MEQ/L (21-32); CHLORIDE LEVEL 107 MEQ/L (98-107); CREATININE FOR GFR 0.85 MG/DL (0.55-1.30); GLOMERULAR FILTRATION RATE > 60.0 (>45); GLUCOSE, FASTING 82 MG/DL (70-100); PHOSPHORUS LEVEL 3.3 MG/DL (2.5-4.9); POTASSIUM SERUM 3.6 MEQ/L (3.5-5.1); SODIUM LEVEL 141 MEQ/L (136-145); TOTAL PROTEIN 6.3 GM/DL (6.4-8.2)
[2022-02-20 16:15] LABS: HEPATITIS B SURFACE ANTIBODY NEGATIVE (POSITIVE)
== END ==
LOC: M LAB 14:49
PROVIDERS: ATTEND Family Medicine
DX: Z51.81 Encounter for therapeutic drug level monitoring (principal); Z79.899 Other long term (current) drug therapy; L40.0 Psoriasis vulgaris

== ENCOUNTER → 2022-03-04 | Outpatient (REF) | payer MEDICARE, OTHER ==
[~2022-03-04] MED LIST changes: +ATOR40TA75 PO; -BYDU2INJ7; +BYDU2INJ7 SC; +DULO1CAP6 PO; +ESTR1TAB PO; -HYDR-3490; +HYDR-3490 PO; -LEVO2TA; +LEVO2TA PO; -LOPE1CAP5; +LOPE1CAP5 PO; -LOSA100T5; +LOSA100T5 PO; +POTA1TAB23 PO
[2022-03-05 17:46] LABS: HEPATITIS C VIRUS ABY INDEX 0.1 INDEX (<0.8); HIV 1&2 SCREEN CENTAUR NEGATIVE (NEGATIVE)
== END ==
LOC: M LAB 14:43
PROVIDERS: ATTEND Family Medicine
DX: Z51.81 Encounter for therapeutic drug level monitoring (principal); L40.0 Psoriasis vulgaris; Z79.899 Other long term (current) drug therapy

== ENCOUNTER → 2022-03-07 | Outpatient (CLI) | payer MEDICARE, OTHER | LOC: M LABSMTC 10:35 | PROVIDERS: ATTEND Anesthesiology | DX: Z01.812 Encounter for preprocedural laboratory examination (principal); Z20.822 Contact with and (suspected) exposure to COVID-19 ==

== ENCOUNTER 2022-03-12 09:12 | Day surgery (SDC) | payer MEDICARE, OTHER ==
[~2022-03-12] VITALS: Ht 152.4 cm; Wt 63.5 kg
[~2022-03-12 09:12] MED LIST changes: +LR 1,000 ML IV ONE
[2022-03-12] MEDS ORDERED: CIPRODEX OTIC SUSP 7.5ML As Ordered ONE (09:34)
[2022-03-12] MEDS ORDERED: PHENYLEPHRINE 0.5% NASAL SPRAY 15 ML As Ordered ONE (09:35)
[2022-03-12] MEDS ORDERED: propofoL 200 MG/20 ML VIAL As Ordered ONE (09:45)
[2022-03-12] MEDS ORDERED: LIDOCAINE 2% 100MG/5ML SDV (FOR ANES.) As Ordered ONE (09:45)
[2022-03-12] MEDS ORDERED: fentaNYL 100 MCG/2 ML INJECTION As Ordered ONE (09:45)
[2022-03-12] MEDS ORDERED: MIDAZOLAM INJ 2MG/2ML VIAL (J2250 PER 1MG) As Ordered ONE (09:45)
[2022-03-12] MEDS ORDERED: dexameTHASONE 4 MG/ML 1ML VIAL (J1100 PER 1MG) As Ordered ONE (10:11)
[2022-03-12] MEDS ORDERED: ONDANSETRON 4MG/2ML VIAL As Ordered ONE (10:11)
[2022-03-12] MEDS ORDERED: fentaNYL 100 MCG/2 ML INJECTION IV PRN (10:45)
[2022-03-12] MEDS ORDERED: oxyCODONE 5MG TAB PO PRN (10:45)
[2022-03-12] MEDS ORDERED: LR 1,000 ML IV SCH ×2 (10:45→10:50)
[2022-03-12] MEDS ORDERED: ONDANSETRON 4MG/2ML VIAL IV PRN (10:45)
[2022-03-12 11:55] VITALS: BP 149/82
== END 2022-03-12 12:00 | disposition home or self-care (01) ==
LOC: M SDC 09:12
PROVIDERS: ATTEND Otolaryngology
DX: T85.398A Other mechanical complication of other ocular prosthetic devices, implants and grafts, initial encounter (principal); H70.91 Unspecified mastoiditis, right ear; I10 Essential (primary) hypertension; K21.9 Gastro-esophageal reflux disease without esophagitis; K58.8 Other irritable bowel syndrome; E11.9 Type 2 diabetes mellitus without complications; F32.9 Major depressive disorder, single episode, unspecified; J45.909 Unspecified asthma, uncomplicated; Z79.51 Long term (current) use of inhaled steroids; Z79.899 Other long term (current) drug therapy; E03.9 Hypothyroidism, unspecified
CPT/HCPCS: 69436; J1100; J2250; J2405; J3010

== ENCOUNTER → 2022-07-22 | Outpatient (CLI) | payer MEDICARE, OTHER ==
[~2022-07-22] MED LIST changes: -LR 1,000 ML IV ONE
== END ==
LOC: M WHC 12:26
PROVIDERS: ATTEND Internal Medicine
DX: Z12.31 Encounter for screening mammogram for malignant neoplasm of breast (principal)

== ENCOUNTER → 2023-01-22 | Outpatient (CLI) | payer MEDICARE, OTHER ==
[2023-01-22 10:59] LABS: HEMATOCRIT 46.9 % (36.0-47.0); HEMOGLOBIN 14.5 g/dl (12.0-15.5); MEAN CORPUSCULAR HEMOGLOBIN 26.6 pg (27.0-33.0); MEAN CORPUSCULAR HGB CONC 30.9 g/dl (32.0-36.5); MEAN CORPUSCULAR VOLUME 86.1 fl (80.0-96.0); PLATELET COUNT, AUTOMATED 252 10^3/uL (150-450); RED BLOOD COUNT 5.45 10^6/uL (4.00-5.40); WHITE BLOOD COUNT 7.6 10^3/uL (4.0-10.0)
[2023-01-22 11:00] LABS: APPEARANCE, URINE HAZY (CLEAR); BACTERIA, URINE AUTO 1+ (NEGATIVE); BILIRUBIN, URINE AUTO NEGATIVE (NEGATIVE); BLOOD, URINE BLOOD NEGATIVE (NEGATIVE); COLOR, URINE YELLOW (YELLOW); GLUCOSE, URINE (UA) AUTO 3+ mg/dL (NEGATIVE); KETONE, URINE AUTO NEGATIVE (NEGATIVE); LEUKOCYTE ESTERASE, URINE AUTO NEGATIVE (NEGATIVE); MUCUS, URINE SMALL (NEGATIVE); NITRITE, URINE AUTO NEGATIVE (NEGATIVE); PROTEIN, URINE AUTO 1+ mg/dL (NEGATIVE); RBC, URINE AUTO 14 /HPF (0-3); SPECIFIC GRAVITY URINE AUTO 1.029 (1.002-1.035); SQUAMOUS EPITHELIAL CELL UR AU 5 /HPF (0-6); UROBILINOGEN, URINE AUTO 0.2 mg/dL (0.0-2.0); WBC, URINE AUTO 9 /HPF (0-3)
[2023-01-22 11:17] LABS: HEMOGLOBIN A1c 6.3 % (4.0-6.0)
[2023-01-22 11:30] LABS: ALBUMIN 3.6 G/DL (3.2-5.2); ALKALINE PHOSPHATASE 56 U/L (46-116); ALT/SGPT 16 U/L (7.0-40); AST/SGOT 17 U/L (<34); BILIRUBIN,TOTAL 0.5 MG/DL (0.3-1.2); BLOOD UREA NITROGEN 11 MG/DL (9-23); CALCIUM LEVEL 9.2 MG/DL (8.3-10.6); CARBON DIOXIDE LEVEL 31 MMOL/L (20-31); CHLORIDE LEVEL 105 MMOL/L (98-107); CHOLESTEROL LEVEL 173 MG/DL (<200); CHOLESTEROL RISK RATIO 2.99 (<5); CREATININE FOR GFR 0.74 MG/DL (0.55-1.30); GLOMERULAR FILTRATION RATE > 60.0 (>45); GLUCOSE, FASTING 110 MG/DL (74-106); HDL CHOLESTEROL 57.7 MG/DL (>40); LDL CHOLESTEROL 80.1 MG/DL (<100); NON-HDL-C 115 MG/DL; POTASSIUM SERUM 3.8 MMOL/L (3.5-5.1); SODIUM LEVEL 142 MMOL/L (136-145); TOTAL PROTEIN 6.6 G/DL (5.7-8.2); TRIGLYCERIDES LEVEL 176 MG/DL (<150)
[2023-01-22 11:31] LABS: FREE T4 1.02 NG/DL (0.89-1.76); THYROID STIMULATING HORMONE 3.373 uIU/ML (0.55-4.78)
== END ==
LOC: M LAB 10:16
PROVIDERS: ATTEND Internal Medicine
DX: E11.9 Type 2 diabetes mellitus without complications (principal); E03.9 Hypothyroidism, unspecified; I10 Essential (primary) hypertension

== ENCOUNTER → 2023-07-17 | Outpatient (CLI) | payer MEDICARE, OTHER ==
[~2023-07-17] MED LIST changes: -HYZA100T6 PO; -K-TA10TA PO; +LOSA-536 PO; -LOSA100T45 PO; +LOSA100T46 PO; -OLOP5DRO16 OU; +OLOP5DRO17 OU; +POTA-164 PO
[2023-07-17 15:27] LABS: CREATININE, URINE 116.1 MG/DL; MAU/CREAT RATIO 4.3 MCG/MG (0.0-30.0)
== END ==
LOC: M PLALAB 11:16
PROVIDERS: ATTEND Podiatrist
DX: E11.65 Type 2 diabetes mellitus with hyperglycemia (principal)

== ENCOUNTER → 2024-03-10 | Outpatient (REF) | payer MEDICARE, OTHER | LOC: M LAB REF 12:51 | PROVIDERS: ATTEND Nurse Practitioner Family | DX: R19.7 Diarrhea, unspecified (principal) ==

== ENCOUNTER → 2024-08-23 | Outpatient (CLI) | payer MEDICARE, OTHER | LOC: M WHC 12:28 | PROVIDERS: ATTEND Internal Medicine | DX: Z12.31 Encounter for screening mammogram for malignant neoplasm of breast (principal); R92.323 Mammographic fibroglandular density, bilateral breasts ==

== ENCOUNTER 2024-09-16 08:03 | Day surgery (SDC) | payer MEDICARE, OTHER ==
[~2024-09-16] VITALS: Ht 154.9 cm; Wt 65.3 kg
[~2024-09-16 08:03] MED LIST changes: +DULA3PEN SC; +GABA-1171 PO; +METO1TAB87 PO; +OMEP40CA5 PO; +PHENYLEPHRINE 10% OPHTH SOL 5ML OD PRN
[2024-09-16] MEDS: OFLOXACIN 0.3 % (OCUFLOX) OPTH SOL 5ML OD ONE (08:55)
[2024-09-16] MEDS: LIDOCAINE 3.5 % 1ML OPHTH TOPICAL GEL OU ONE (08:55)
[2024-09-16] MEDS: ATROPINE SULFATE 1% OPHTH SOLN 2ML BTL OD SCH (08:56)
[2024-09-16] MEDS: TROPICAMIDE 1% OPHTH SOLN 15ML OD SCH (08:56)
[2024-09-16] MEDS: PHENYLEPHRINE 2.5% OPHTH SOL 2ML OD SCH (08:56)
[2024-09-16] MEDS ORDERED: MIDAZOLAM INJ 2MG/2ML VIAL As Ordered ONE (09:13)
[2024-09-16] MEDS ORDERED: fentaNYL 100 MCG/2 ML INJECTION As Ordered ONE (09:14)
[2024-09-16] MEDS: BSS IRRIG/VANCO(10MG)/TOBRA(5MG)/EPINEPH(1:1000-0.5CC)500ML BAG-ORONLY As Ordered ONE (09:54)
[2024-09-16] MEDS: LIDOCAINE 1% SDV 5ML VIAL As Ordered ONE (09:54)
[2024-09-16] MEDS: CEFUROXIME 1MG/0.1ML INTRACAMERAL INJ As Ordered ONE (09:54)
[2024-09-16 10:07] VITALS: BP 149/71; TEMP 96.5; O2SAT 94
== END 2024-09-16 10:27 | disposition home or self-care (01) ==
LOC: M SDC 08:03
PROVIDERS: ATTEND Ophthalmology
DX: H25.11 Age-related nuclear cataract, right eye (principal); I10 Essential (primary) hypertension; E11.9 Type 2 diabetes mellitus without complications; E03.9 Hypothyroidism, unspecified; K58.8 Other irritable bowel syndrome; K21.9 Gastro-esophageal reflux disease without esophagitis; L40.9 Psoriasis, unspecified; F32.A Depression, unspecified; J45.909 Unspecified asthma, uncomplicated; Z79.899 Other long term (current) drug therapy; G47.33 Obstructive sleep apnea (adult) (pediatric); Z79.51 Long term (current) use of inhaled steroids
CPT/HCPCS: 66984; J0697; J2250; J3010; V2632

== ENCOUNTER 2024-09-30 10:38 | Day surgery (SDC) | payer MEDICARE, OTHER ==
[~2024-09-30] VITALS: Ht 152.4 cm; Wt 65.1 kg
[~2024-09-30 10:38] MED LIST changes: -PHENYLEPHRINE 10% OPHTH SOL 5ML OD PRN; +PHENYLEPHRINE 10% OPHTH SOL 5ML OS PRN; +RISA150S2 SC
[2024-09-30] MEDS ORDERED: MIDAZOLAM INJ 2MG/2ML VIAL As Ordered ONE (10:58)
[2024-09-30] MEDS ORDERED: fentaNYL 100 MCG/2 ML INJECTION As Ordered ONE (10:58)
[2024-09-30] MEDS: LIDOCAINE 3.5 % 1ML OPHTH TOPICAL GEL OU ONE (12:38)
[2024-09-30] MEDS: OFLOXACIN 0.3 % (OCUFLOX) OPTH SOL 5ML OS ONE (12:38)
[2024-09-30] MEDS: TROPICAMIDE 1% OPHTH SOLN 15ML OS SCH (12:38)
[2024-09-30] MEDS: ATROPINE SULFATE 1% OPHTH SOLN 2ML BTL OS SCH (12:38)
[2024-09-30] MEDS: PHENYLEPHRINE 2.5% OPHTH SOL 2ML OS SCH (12:38)
[2024-09-30] MEDS: LIDOCAINE 1% SDV 5ML VIAL As Ordered ONE (13:27)
[2024-09-30] MEDS: BSS IRRIG/VANCO(10MG)/TOBRA(5MG)/EPINEPH(1:1000-0.5CC)500ML BAG-ORONLY As Ordered ONE (13:30)
[2024-09-30] MEDS: CEFUROXIME 1MG/0.1ML INTRACAMERAL INJ As Ordered ONE (13:30)
[2024-09-30 13:49] VITALS: BP 141/82; TEMP 98.2; O2SAT 96
== END 2024-09-30 13:57 | disposition home or self-care (01) ==
LOC: M SDC 10:38
PROVIDERS: ATTEND Ophthalmology
DX: H25.12 Age-related nuclear cataract, left eye (principal); I10 Essential (primary) hypertension; E11.9 Type 2 diabetes mellitus without complications; E03.9 Hypothyroidism, unspecified; K58.8 Other irritable bowel syndrome; K21.9 Gastro-esophageal reflux disease without esophagitis; J45.909 Unspecified asthma, uncomplicated; G47.33 Obstructive sleep apnea (adult) (pediatric); Z79.899 Other long term (current) drug therapy; F32.A Depression, unspecified; L40.8 Other psoriasis
CPT/HCPCS: 66984; J0697; J2250; J3010; V2632

== ENCOUNTER → 2024-11-22 | Outpatient (CLI) | payer MEDICARE, OTHER ==
[~2024-11-22] MED LIST changes: +ISOVUE-300 61% 100ML VIAL As Ordered ONE; +JARD1TAB3 PO; +LIDOCAINE 1% MDV 20ML VIAL As Ordered ONE; -PHENYLEPHRINE 10% OPHTH SOL 5ML OS PRN; +TRIAMCINOLONE ACETONIDE SUSP 40MG/ML 1ML VIAL As Ordered ONE
[2024-11-22 14:35] LABS: SOURCE, BODY FLUID RT SHOULDER
== END ==
LOC: M RAD 12:49
PROVIDERS: ATTEND Physical Medicine & Rehabilitation
DX: I10 Essential (primary) hypertension (principal); S46.111D Strain of muscle, fascia and tendon of long head of biceps, right arm, subsequent encounter
CPT/HCPCS: 20610; 77002; 87070; 87205; J3301; Q9967

== ENCOUNTER 2024-12-09 07:27 | Day surgery (SDC) | payer MEDICARE, OTHER ==
[~2024-12-09] VITALS: Ht 152.4 cm; Wt 64.0 kg
[~2024-12-09 07:27] MED LIST changes: -ISOVUE-300 61% 100ML VIAL As Ordered ONE; -LIDOCAINE 1% MDV 20ML VIAL As Ordered ONE; -TRIAMCINOLONE ACETONIDE SUSP 40MG/ML 1ML VIAL As Ordered ONE
[2024-12-09] MEDS ORDERED: LIDOCAINE 2% 100MG/5ML SDV (FOR ANES.) As Ordered ONE (07:54)
[2024-12-09] MEDS ORDERED: propofoL 200 MG/20 ML VIAL As Ordered ONE (07:54)
[2024-12-09 09:29] VITALS: TEMP 99.4
[2024-12-09 09:55] VITALS: BP 172/80; O2SAT 98
== END 2024-12-09 10:04 | disposition home or self-care (01) ==
LOC: M OPP 07:27
PROVIDERS: ATTEND Internal Medicine Gastroenterology
DX: Z12.11 Encounter for screening for malignant neoplasm of colon (principal); D12.5 Benign neoplasm of sigmoid colon; K57.30 Diverticulosis of large intestine without perforation or abscess without bleeding; K64.8 Other hemorrhoids; Z86.0100 Personal history of colon polyps, unspecified; Z79.85 Long-term (current) use of injectable non-insulin antidiabetic drugs; Z79.899 Other long term (current) drug therapy; G47.30 Sleep apnea, unspecified

== ENCOUNTER → 2025-03-01 | Outpatient (CLI) | payer MEDICARE, OTHER ==
[2025-03-01 15:17] LABS: BLOOD UREA NITROGEN 11 MG/DL (9-23); CREATININE FOR GFR 0.86 MG/DL (0.55-1.30); GLOMERULAR FILTRATION RATE > 60.0 (>45)
== END ==
LOC: M LAB 14:25
PROVIDERS: ATTEND Physician Assistant Medical
DX: R63.4 Abnormal weight loss (principal)

== ENCOUNTER → 2025-03-03 | Outpatient (CLI) | payer MEDICARE, OTHER ==
[~2025-03-03] MED LIST changes: +ISOVUE-370 76% 100ML VIAL As Ordered ONE
== END ==
LOC: M RAD 09:04
PROVIDERS: ATTEND Physician Assistant Medical
DX: R63.4 Abnormal weight loss (principal); R19.8 Other specified symptoms and signs involving the digestive system and abdomen; Z90.49 Acquired absence of other specified parts of digestive tract; K57.30 Diverticulosis of large intestine without perforation or abscess without bleeding; I70.0 Atherosclerosis of aorta
CPT/HCPCS: 74177; Q9967

== ENCOUNTER → 2025-05-26 | Outpatient (REF) | payer MEDICARE, OTHER ==
[~2025-05-26] MED LIST changes: -BYDU2INJ7 SC; +EXEN2AUT SC; -ISOVUE-370 76% 100ML VIAL As Ordered ONE
== END ==
LOC: M LAB REF 16:58
PROVIDERS: ATTEND Physician Assistant Medical
DX: R19.7 Diarrhea, unspecified (principal); R11.0 Nausea

== ENCOUNTER → 2025-06-03 | Outpatient (REF) | payer MEDICARE, OTHER | LOC: M LAB REF 17:02 | PROVIDERS: ATTEND Physician Assistant Medical | DX: R19.7 Diarrhea, unspecified (principal) ==

== ENCOUNTER → 2025-10-18 | Outpatient (CLI) | payer MEDICARE, OTHER ==
[~2025-10-18] MED LIST changes: -IBUP-1022 PO; +IBUP600T42 PO
[2025-10-18 15:32] LABS: ESTIMATED AVERAGE GLUCOSE 137.0 MG/DL (60-110)
== END ==
LOC: M LAB 14:53
PROVIDERS: ATTEND Internal Medicine
DX: E11.65 Type 2 diabetes mellitus with hyperglycemia (principal)